=== PATIENT | male | born 1955 | race Caucasian/White ===

== ENCOUNTER 2021-10-29 16:48 | Inpatient (IN) | payer MEDICARE, OTHER ==
[~2021-10-29] VITALS: Ht 177.8 cm; Wt 74.4 kg
--- NOTE | 2021-10-29 17:00 | NUR ---
RN-ADMISSION NOTES ADMITTED 66 Y.O MALE PATIENT FROM [facility]. PATIENT ON [address] RAY ( PSYCHIATRIST) MADE AWARE WITH ORDERS. DR. SAPP ( DISABILITY BENEFITS SPECIALIST ) MADE AWARE OF THE ADMISSION. PATIENT IS A/O X3 ,UPON FACE TO FACE ASSESSMENT, PATIENT VERBALIZED THAT HE IS DEPRESSED BUT DENIES SI/HI .ADVISEMENT WAS GIVEN TO HIM ,HE SIGN ALL ADMISSION PAPERS. PATIENT'S RIGHT BOOKLET WAS GIVEN TO HIM. ORIENTED IN THE UNIT AND UNIT POLICIES. DTR AJITH WAS MADE AWARE OF THE ADMISSION. CONTRABAND AND FULL BODY ASSESSMENT DONE. WILL ENDORSE TO INCOMING NURSE FOR THE ADMISSION PROCESS AND CONTINUITY OF CARE.
[2021-10-29] MEDS ORDERED: METO25TA20 PO (17:08)
[2021-10-29] MEDS ORDERED: SERT100T12 PO (17:08)
[2021-10-29] MEDS ORDERED: HYDR-500 PO (17:08)
[2021-10-29] MEDS ORDERED: OMEP40CA21 PO (17:08)
[2021-10-29] MEDS ORDERED: MAG HYDROX/AL HYDROX/SIMETH 30 ML UDC PO PRN (18:00)
[2021-10-29] MEDS ORDERED: BLOOD SUGAR DIAGNOSTIC 1 EACH STRIP IN ONE (18:00)
[2021-10-29] MEDS ORDERED: MAGNESIUM HYDROXIDE 30 ML UDC PO PRN (18:00)
[2021-10-29] MEDS ORDERED: LORAZEPAM 0.5 MG TABLET PO PRN (18:00)
[2021-10-29 20:00] VITALS: BP 128/63
[2021-10-30 08:00] VITALS: BP 149/95
[2021-10-30] MEDS: PANTOPRAZOLE 40 MG TABLET.DR PO SCH (08:03)
[2021-10-30 08:08] LABS: ALBUMIN 3.2 g/dL (3.4-5.0); CALCIUM, SERUM 8.4 mg/dL (8.5-10.1); CREATININE 0.8 mg/dL (0.6-1.3); POTASSIUM 3.8 mmol/L (3.5-5.1); TOTAL PROTEIN, SERUM 6.4 g/dL (6.4-8.2)
[2021-10-30 08:13] LABS: CHOLESTEROL 227 mg/dL (<200); HDL CHOLESTEROL 83 mg/dL (40-60); LDL 131 mg/dL (0-99); TRIGLYCERIDES 50 mg/dL (30-150)
[2021-10-30] MEDS: FOLIC ACID 1 MG TABLET PO SCH (08:21)
[2021-10-30] MEDS: THIAMINE HCL 100 MG TABLET PO SCH (08:21)
[2021-10-30] MEDS: CHLORDIAZEPOXIDE HCL 25 MG CAPSULE PO SCH ×3 (08:21→16:30)
--- NOTE | 2021-10-30 10:59 | NUR ---
ABIOLA Initial Discharge Plan: Patient was provided with a brief substance abuse intervention and referred to [facility] ([phone]), [facility] ([phone]), and [facility] ([phone]) for alcohol abuse. Addendum: 10/30/21 at 1137 by ABIOLA GARCIA Substance Abuse Intervention: Patient was provided with a brief substance abuse intervention and referred to [facility] ([phone]), [facility] ([phone]), and [facility] ([phone]) for alcohol abuse.
[2021-10-30] MEDS: NICOTINE PATCH (14MG) 14 MG PATCH.TD24 TD SCH (11:01)
--- NOTE | 2021-10-30 11:23 | NUR ---
WOUND CARE CONSULT: PT PRESENTS WITH DRY SCAB TO NOSE BRIDGE AND DISCOLORATION TO FACE, PRESENT ON ADMISSION. PT IS AMBULATORY. WILL SEE PRN. CURRENT LIS SCORE IS 22.
--- NOTE | 2021-10-30 11:37 | NUR ---
ABIOLA Initial Discharge Plan: Patient lives at [address] [place] [id number] ([phone]) with , daughter, and nephew. Patient wants to return back home upon dc. ABIOLA will work with the MD and treatment team to help coordinate appropriate discharge.
--- NOTE | 2021-10-30 13:49 | NUR ---
ABIOLA Family Contact: ABIOLA spoke with patient's daughter Linda ([phone]) to gather collateral. She expressed that her father is an acholic. Linda reported that pt was discharged from [facility] rehab two weeks ago and was drinking excessively at home. She reported that she believes he is developing delusions because he is fixated on colon cancer stating that he has colon cancer. Daughter reported that she called his medical doctor office to find out more information and office stated that this is not true. Linda would want to speak to Dr. Rodriguez. ABIOLA notified Dr. Rodriguez. ABIOLA explained [id number]/1479 process.
--- NOTE | 2021-10-30 14:12 | NUR ---
Doctor Office: SW attempted to contact patient's doctor office Dr. Dickens ([phone]) requesting information if pt has colon cancer or not. Formal Wear Rental Clerk stated the office will contact this technical publications writer if they have any information.
[2021-10-30 16:00] VITALS: BP 116/67
[2021-10-30 20:05] VITALS: BP 130/76
[2021-10-30] MEDS: TEMAZEPAM 7.5 MG CAPSULE PO PRN (21:38)
--- NOTE | 2021-10-30 21:39 | NUR ---
RN NOTE: INSOMNIA PATIENT C/O UNABLE TO SLEEP, PATIENT REQUESTED TO TAKE SLEEPING MEDICINE. PER PATIENT REQUEST, PRN RESTORIL 15 MG PO ADMINISTERED ORDERED. WILL CONTINUE TO MONITOR FOR ANY CHANGE OF CONDITION.
[2021-10-30] MEDS: MIRTAZAPINE 15 MG TABLET PO SCH (22:42)
--- NOTE | 2021-10-30 22:48 | NUR ---
RN NOTE: DR. RAY SAW THE PATIENT PATIENT SEEN BY DR. CORY FRITZ WITH NEW ORDER TO START REMERON 15 MG PO QHS. ORDER NOTED AND CARRIED OUT. DR. RAY WAS NOTIFIED THAT PATIENT'S DAUGHTER WOULD LIKE TO DISCUSS PLAN OF CARE, PER DR. RAY, HE WILL CALL PATIENT'S DAUGHTER TOMORROW.
[2021-10-31] MEDS: PANTOPRAZOLE 40 MG TABLET.DR PO SCH (07:30)
[2021-10-31 08:00] VITALS: BP 138/66
[2021-10-31] MEDS: CHLORDIAZEPOXIDE HCL 25 MG CAPSULE PO SCH ×3 (09:00→17:07)
[2021-10-31] MEDS: FOLIC ACID 1 MG TABLET PO SCH (09:00)
[2021-10-31] MEDS: THIAMINE HCL 100 MG TABLET PO SCH (09:00)
[2021-10-31] MEDS: NICOTINE PATCH (14MG) 14 MG PATCH.TD24 TD SCH (09:00)
[2021-10-31 15:40] VITALS: BP 115/72
[2021-10-31 20:36] VITALS: BP 116/64
[2021-10-31] MEDS: MIRTAZAPINE 15 MG TABLET PO SCH (21:02)
[2021-10-31] MEDS: ATORVASTATIN 10 MG TABLET PO SCH (21:02)
[2021-11-01 08:00] VITALS: BP 118/64
[2021-11-01] MEDS: PANTOPRAZOLE 40 MG TABLET.DR PO SCH (08:24)
[2021-11-01] MEDS: CHLORDIAZEPOXIDE HCL 25 MG CAPSULE PO SCH ×3 (08:24→16:57)
[2021-11-01] MEDS: THIAMINE HCL 100 MG TABLET PO SCH (08:25)
[2021-11-01] MEDS: NICOTINE PATCH (14MG) 14 MG PATCH.TD24 TD SCH (08:25)
[2021-11-01] MEDS: FOLIC ACID 1 MG TABLET PO SCH (08:25)
[2021-11-01 09:27] LABS: BASOPHILS % (AUTO) 0.5 % (0.0-2.0); EOSINOPHILS % (AUTO) 3.8 % (0.0-6.0); HEMATOCRIT 39 % (39-51); HEMOGLOBIN 12.8 g/dL (13.5-17.5); LYMPHOCYTES # (AUTO) 1.7 K/uL (0.8-4.8); LYMPHOCYTES % (AUTO) 40.1 % (20.0-44.0); MEAN CORPUSCULAR HGB CONC 33 g/dl (31.0-36.0); MEAN CORPUSCULAR VOLUME 94 fL (80-96); MONOCYTES # (AUTO) 0.4 K/uL (0.1-1.30); MONOCYTES % (AUTO) 9.7 % (2.0-12.0); NEUTROPHILS % (AUTO) 45.9 % (43.0-81.0); PLATELET COUNT (AUTO) 148 K/uL (150-450); RED BLOOD CELL COUNT(AUTO) 4.12 MIL/uL (4.5-6.0); WHITE BLOOD COUNT (AUTO) 4.3 K/uL (4.3-11.0)
[2021-11-01 14:06] LABS: CALCIUM, SERUM 6.9 mg/dL (8.5-10.1); CREATININE 0.9 mg/dL (0.6-1.3); MAGNESIUM 1.9 mg/dL (1.8-2.4); PHOSPHORUS 4.5 mg/dL (2.5-4.9); POTASSIUM 3.7 mmol/L (3.5-5.1)
[2021-11-01 16:00] VITALS: BP 100/60
[2021-11-01 20:00] VITALS: BP 119/65
[2021-11-01 20:25] LABS: THYROID STIMULATING HORMONE 1.734 uIU/mL (0.358-3.74)
--- NOTE | 2021-11-01 20:33 | NUR ---
RN NOTE: ANXIETY PATIENT VERBALIZED FEELING ANXIOUS AND RESTLESS, PER PATIENT REQUEST ATIVAN 1 MG PO ADMINISTERED ORDERED. WILL CONTINUE TO MONITOR FOR ANY CHANGE OF CONDITION.
[2021-11-01] MEDS: MIRTAZAPINE 15 MG TABLET PO SCH (22:10)
[2021-11-01] MEDS: ATORVASTATIN 10 MG TABLET PO SCH (22:10)
--- NOTE | 2021-11-02 07:10 | NUR ---
RN NOTE PATIENT'S DAUGHTER REQUESTED AN UPDATE AT THE END OF THE SHIFT, CALLED AJITH AND LEFT A VOICEMAIL SINCE AJITH DIDN'T ANSWER THE PHONE CALL.
[2021-11-02 08:00] VITALS: BP 129/71
[2021-11-02] MEDS: PANTOPRAZOLE 40 MG TABLET.DR PO SCH (08:26)
[2021-11-02] MEDS: THIAMINE HCL 100 MG TABLET PO SCH (08:26)
[2021-11-02] MEDS: NICOTINE PATCH (14MG) 14 MG PATCH.TD24 TD SCH (08:26)
[2021-11-02] MEDS: CHLORDIAZEPOXIDE HCL 25 MG CAPSULE PO SCH (08:26)
[2021-11-02] MEDS: FOLIC ACID 1 MG TABLET PO SCH (08:26)
[2021-11-02] MEDS: CHLORDIAZEPOXIDE HCL 5 MG CAPSULE PO SCH ×2 (13:50→18:03)
[2021-11-02 16:00] VITALS: BP 118/60
[2021-11-02] MEDS ORDERED: IV NS 0.9% 250 ML IV ONE (17:35)
[2021-11-02] MEDS ORDERED: CT SWABBABLE VALVE TRANS SET 1 EA INFUS.SET MC ONE (17:35)
[2021-11-02] MEDS ORDERED: IOHEXOL-300 100 ML VIAL IV ONE (17:35)
[2021-11-02 19:36] VITALS: BP 128/65
[2021-11-02 20:15] VITALS: BP 128/65
--- NOTE | 2021-11-02 20:45 | NUR ---
RN NOTE DR. RAY SAW THE PATIENT WITH NEW ORDER TO START DEPAKOTE ORDERED. NOTED AND CARRIED OUT. DR. RAY ALSO SPOKE TO PATIENT'S DAUGHTER AJITH VIA PHONE AND UPDATED HER ABOUT PATIENT'S CONDITION.
[2021-11-02] MEDS: DIVALPROEX SODIUM 250 MG TABLET.DR PO SCH (21:21)
[2021-11-02] MEDS: TAMSULOSIN 0.4 MG CAP.SR.24H PO SCH (21:34)
[2021-11-02] MEDS: ATORVASTATIN 10 MG TABLET PO SCH (21:34)
[2021-11-02] MEDS: MIRTAZAPINE 15 MG TABLET PO SCH (22:20)
--- NOTE | 2021-11-02 22:30 | NUR ---
RN NOTE PATIENT VERBALIZED THAT HE HAS A BRUISE TO HIS RIGHT ABDOMINAL AREA. HUMAN SERVICES CARE SPECIALIST ASSESSED PATIENT'S SKIN, NOTED RIGHT LATERAL ABDOMINAL BRUISE, NO OPEN SKIN NOTED. PER PATIENT," I FELL AT HOME AND DEVELOPED THIS BRUISE," WEEKLY SKIN ASSESSMENT DONE, PICTURE TAKEN AND PLACED IN THE CHART. PATIENT DIDN'T ALLOW FULL BODY SKIN ASSESSMENT AT THIS TIME, ONLY SHOWED RIGHT ABDOMINAL BRUISE AND FACE SKIN ASSESSMENT WAS DONE. NO C/O PAIN VERBALIZED BY THE PATIENT AT THIS TIME. WILL CONTINUE TO MONITOR FOR ANY CHANGE OF CONDITION.
[2021-11-03] MEDS: PANTOPRAZOLE 40 MG TABLET.DR PO SCH (07:30)
[2021-11-03 08:00] VITALS: BP 108/64
[2021-11-03] MEDS: FOLIC ACID 1 MG TABLET PO SCH (09:02)
[2021-11-03] MEDS: DIVALPROEX SODIUM 250 MG TABLET.DR PO SCH ×2 (09:02→21:18)
[2021-11-03] MEDS: NICOTINE PATCH (14MG) 14 MG PATCH.TD24 TD SCH (09:02)
[2021-11-03] MEDS: CHLORDIAZEPOXIDE HCL 5 MG CAPSULE PO SCH ×4 (09:02→21:54)
[2021-11-03] MEDS: THIAMINE HCL 100 MG TABLET PO SCH (09:02)
--- NOTE | 2021-11-03 14:20 | NUR ---
ABIOLA Coordination of Care: Patient will be following up with his primary care physician Dr. Ornelas [id number] [facility] [address], [place] [address] ([phone]) and has a follow up appointment scheduled on November 13 at 2:15PM and doctor office stated they will refer to a psychiatrist. Carlee pet training instructor stated they will refer pt to a psychiatrist.
[2021-11-03 16:00] VITALS: BP 142/70
--- NOTE | 2021-11-03 19:28 | NUR ---
received in bed alert and orientated x4 speech clear he is reading a book and spoke about what the book was about and the author friendly
[2021-11-03 20:14] VITALS: BP 126/60
[2021-11-03] MEDS: ATORVASTATIN 10 MG TABLET PO SCH (21:18)
[2021-11-03] MEDS: MIRTAZAPINE 15 MG TABLET PO SCH (21:18)
[2021-11-03] MEDS: TAMSULOSIN 0.4 MG CAP.SR.24H PO SCH (21:18)
[2021-11-04] MEDS: PANTOPRAZOLE 40 MG TABLET.DR PO SCH (07:30)
[2021-11-04 08:00] VITALS: BP 113/76
[2021-11-04] MEDS: NICOTINE PATCH (14MG) 14 MG PATCH.TD24 TD SCH (09:09)
[2021-11-04] MEDS: CHLORDIAZEPOXIDE HCL 5 MG CAPSULE PO SCH ×2 (09:09→21:13)
[2021-11-04] MEDS: DIVALPROEX SODIUM 250 MG TABLET.DR PO SCH ×2 (09:10→21:13)
[2021-11-04] MEDS: THIAMINE HCL 100 MG TABLET PO SCH (09:10)
[2021-11-04] MEDS: FOLIC ACID 1 MG TABLET PO SCH (09:10)
--- NOTE | 2021-11-04 14:15 | NUR ---
Court Hearing: Patient's court hearing for 5250 was today and it was upheld for GD and danger to self.
[2021-11-04 16:07] VITALS: BP 119/67
[2021-11-04 20:30] VITALS: BP 120/59
[2021-11-04] MEDS: TAMSULOSIN 0.4 MG CAP.SR.24H PO SCH (21:13)
[2021-11-04] MEDS: MIRTAZAPINE 15 MG TABLET PO SCH (21:13)
[2021-11-04] MEDS: ATORVASTATIN 10 MG TABLET PO SCH (21:14)
[2021-11-05] MEDS: PANTOPRAZOLE 40 MG TABLET.DR PO SCH (07:38)
[2021-11-05 08:00] VITALS: BP 128/70
[2021-11-05] MEDS: FOLIC ACID 1 MG TABLET PO SCH (08:17)
[2021-11-05] MEDS: NICOTINE PATCH (14MG) 14 MG PATCH.TD24 TD SCH (08:17)
[2021-11-05] MEDS: THIAMINE HCL 100 MG TABLET PO SCH (08:18)
[2021-11-05] MEDS: METOPROLOL TARTRATE 25 MG TABLET PO PRN (08:18)
[2021-11-05] MEDS: DIVALPROEX SODIUM 500 MG TABLET.DR PO SCH ×2 (08:20→21:25)
[2021-11-05 16:00] VITALS: BP 117/64
[2021-11-05] MEDS: ACETAMINOPHEN 325 MG TABLET PO PRN (19:40)
--- NOTE | 2021-11-05 19:45 | NUR ---
RN NOTE: PAIN PATIENT C/O TOOTHACHE 01/15 AND REQUESTED TO TAKE PAIN MEDICINE. PRN TYLENOL 650 MG PO ADMINISTERED.
[2021-11-05 20:00] VITALS: BP 132/77
[2021-11-05 20:04] VITALS: BP 132/77
[2021-11-05] MEDS: ATORVASTATIN 10 MG TABLET PO SCH (21:41)
[2021-11-05] MEDS: TAMSULOSIN 0.4 MG CAP.SR.24H PO SCH (21:41)
[2021-11-05] MEDS: MIRTAZAPINE 15 MG TABLET PO SCH (21:41)
[2021-11-06] MEDS: PANTOPRAZOLE 40 MG TABLET.DR PO SCH (07:23)
[2021-11-06 08:00] VITALS: BP 107/63
[2021-11-06] MEDS: THIAMINE HCL 100 MG TABLET PO SCH (08:13)
[2021-11-06] MEDS: DIVALPROEX SODIUM 500 MG TABLET.DR PO SCH ×2 (08:13→21:23)
[2021-11-06] MEDS: METOPROLOL TARTRATE 25 MG TABLET PO PRN (08:14)
[2021-11-06] MEDS: FOLIC ACID 1 MG TABLET PO SCH (08:14)
[2021-11-06] MEDS: NICOTINE PATCH (14MG) 14 MG PATCH.TD24 TD SCH (08:16)
--- NOTE | 2021-11-06 08:43 | NUR ---
ABIOLA Family Contact: ABIOLA spoke with patient's daughter Linda ([phone]) who stated she will burr picker the pt 11/07 at 10AM.
--- NOTE | 2021-11-06 08:45 | NUR ---
EARLY ENTRY DISCHARGE WEDNESDAY 11/07: Patient will be discharged back home [id number] [place] [address] ([phone]). Patient's daughter Linda ([phone]) will product picker pt at 10AM Patient presents alert and oriented times x4. Patient denies suicidal or homicidal ideation. Patient presents with euthymic mood and congruent affect. Patients daughter Linda ([phone]) has been notified of patients discharge. Patient is referred to [facility] [address] [place] [address] ([phone]) for outpatient psychiatric services. Patient will be following up with his primary care physician Dr. Ornelas [address] [facility] [address], [place] [address] ([phone]) and has a follow up appointment scheduled on November 13 at 2:15PM and doctor office stated they will refer to a psychiatrist. Patient was provided with a brief substance abuse intervention and referred to the following substance abuse programs: [facility] ([phone]); [facility] [address] [place] [address] ([phone]); [facility] [address] [place] [place] [address] ([phone]); [facility] ([phone]); [facility] ([phone]); [facility] ([phone]); [facility] ([phone]). Patient presents with euthymic mood and congruent affect.
[2021-11-06 16:00] VITALS: BP 120/57
--- NOTE | 2021-11-06 19:30 | NUR ---
GPS RN NOTE, RECEIVED PATIENT AWAKE AND IN BED, PATIENT HAS A COMPLAINT OF HEADACHE AT 2 OUT OF 10 ON THE PAIN SCALE AT THIS TIME. PATIENT IS TAKING PAIN MEDICATION FOR THIS PAIN. PATIENT IS DISPLAYING NO S/S OF APPARENT DISTRESS AT THIS TIME. PATIENT BREATHING IS UNLABORED WITH EQUAL RISE AND FALL OF THE CHEST. PATIENT IS ALERT AND ORIENTED X 3 ON ROOM AIR WITH A SPO2 98%. PATIENT IS COMPLIANT WITH MEDICATIONS, CALM, POLITE, AND COOPERATIVE. PATIENT DENIES SUICIDAL AND HOMICIDAL IDEATIONS AT THIS TIME. PATIENT ASSISTED WITH TURNING AND REPOSITIONING Q2HR AND PRN FOR COMFORT AND CIRCULATION. PATIENT HAS NO NEEDS AT THIS TIME. PATIENT EDUCATED ON THE USE OF THE CALL LINDA. PATIENT BED SIDE RAILS UP X 2 FOR SAFETY. PATIENT BED IS LOCKED, LOW, WITH BED ALARM ON. WILL CONTINUE TO MONITOR THIS PATIENT Q15 MINUTES WITH THE HELP OF STAFF TO MAINTAIN SAFETY.
[2021-11-06] MEDS: ACETAMINOPHEN 325 MG TABLET PO PRN (19:38)
--- NOTE | 2021-11-06 19:38 | NUR ---
GPS RN NOTE, PATIENT HAS A COMPLAINT OF A HEADACHE AT 2 OUT OF 10 ON THE PAIN SCALE AND IS REQUESTING TYLENOL AT THIS TIME. PATIENT VITAL SIGNS ARE STABLE. GAVE TYLENOL 650MG PO Q6HR PRN ORDERED. WILL REASSESS PAIN AND I WILL CONTINUE TO MONITOR THIS PATIENT WITH THE HELP OF STAFF.
[2021-11-06 20:00] VITALS: BP 122/57
[2021-11-06] MEDS: TAMSULOSIN 0.4 MG CAP.SR.24H PO SCH (21:23)
[2021-11-06] MEDS: MIRTAZAPINE 15 MG TABLET PO SCH (21:23)
[2021-11-06] MEDS: ATORVASTATIN 10 MG TABLET PO SCH (21:23)
[2021-11-06] MEDS: TEMAZEPAM 7.5 MG CAPSULE PO PRN (23:55)
--- NOTE | 2021-11-06 23:55 | NUR ---
GPS RN NOTE, PATIENT HAS A COMPLAINT OF NOT BEING ABLE TO SLEEP AND IS REQUESTING RESTORIL AT THIS TIME. PATIENT VITAL SIGNS ARE STABLE. GAVE RESTORIL 15MG PO HS PRN ORDERED. WILL REASSESS FOR INSOMNIA AND I WILL CONTINUE TO MONITOR THIS PATIENT WITH THE HELP OF STAFF.
[2021-11-07 08:00] VITALS: BP 135/62
[2021-11-07] MEDS: PANTOPRAZOLE 40 MG TABLET.DR PO SCH (08:18)
[2021-11-07] MEDS: THIAMINE HCL 100 MG TABLET PO SCH (08:18)
[2021-11-07] MEDS: FOLIC ACID 1 MG TABLET PO SCH (08:18)
[2021-11-07] MEDS: NICOTINE PATCH (14MG) 14 MG PATCH.TD24 TD SCH (08:18)
[2021-11-07] MEDS: DIVALPROEX SODIUM 500 MG TABLET.DR PO SCH (08:18)
--- NOTE | 2021-11-07 09:08 | NUR ---
Dr. Rodriguez gave an order to D/C Hold and D/C home and to follow up psych and medical doctors. Dr. Rodriguez provided a prescriptions upon discharge. Pt. is with psychiatric and primary referral. Pt. without distress, denies suicidal and homicidal. Pt. signed the discharge papers, pictures taken for the skin issues and belongings ready. German LOPEZ made aware of the discharge and provided prescriptions on meds to continue at home. Pts. daughter Linda will tow picker pt. at 10:00 AM. Addendum: 11/07/21 at 0915 by EBENEZER BURRIS RN Pt. with psychiatric and primary doctor referrals
--- NOTE | 2021-11-07 10:10 | NUR ---
Pt. left the unit with belongings and escorted by staff to the lobby. Pt. without distress and ambulatory. V/S taken : BP 124/68, LA 90, RR 18, temp. 98.6 and oxygen sat 97%. Pt. was instructed on meds to continue at home and verbalizes understanding and advised about the referrals for psychiatric services and primary care physician and agreed. Pt. was picked up by his daughter Linda.
== END 2021-11-07 10:10 | disposition home or self-care (01) | DRG 881 ==
LOC: GPS 16:48
PROVIDERS: ADMIT Psychiatry & Neurology Psychiatry; ATTEND Registered Nurse
DX: F32.A Depression, unspecified (principal); R45.851 Suicidal ideations; F39 Unspecified mood [affective] disorder; E78.5 Hyperlipidemia, unspecified; I10 Essential (primary) hypertension; K21.9 Gastro-esophageal reflux disease without esophagitis; K57.30 Diverticulosis of large intestine without perforation or abscess without bleeding; K59.00 Constipation, unspecified; F10.10 Alcohol abuse, uncomplicated; N40.0 Benign prostatic hyperplasia without lower urinary tract symptoms; K76.0 Fatty (change of) liver, not elsewhere classified; Z87.891 Personal history of nicotine dependence; Z91.51 Personal history of suicidal behavior; R15.9 Full incontinence of feces; R10.30 Lower abdominal pain, unspecified
CPT/HCPCS: 36415; 80048-TC; 80053-TC; 80061-TC; 80164-TC; 82962-TC; 83735-TC; 84100-TC; 84153-TC; 84443-TC; 85025-TC; 87081-TC; J7050; Q9967